=== PATIENT | male | born 1995 | race Caucasian/White ===

== ENCOUNTER 2017-05-28 00:34 | Emergency (ER) | payer BC, OTHER ==
[~2017-05-28] VITALS: Ht 175.3 cm; Wt 114.0 kg
[~2017-05-28 00:34] MED LIST: CEPH500C2 PO; DEXT1CAP8 PO; IBUP-103 PO; SULF800T23 PO
[2017-05-28 00:40] VITALS: TEMP 37; Ht 175.3 cm; Wt 114.0 kg
[2017-05-28] MEDS ORDERED: LIDOCAINE/EPINEPHRINE 1% 20 ML VIAL INFIL ONE (01:00)
--- NOTE | 2017-05-28 01:18 | EMERGENCY ROOM VISIT NOTE ---
History First contact with patient: 00:46 Chief Complaint: HEAD INJURY (MINOR) Stated Complaint: HEAD TRAUMA History of Present Illness The patient is a 21 year old male who presents to the Emergency Room with complaints of a head injury and laceration to his scalp. The patient states that 30 minutes prior to arrival, he slipped and fell backward, striking his head off the corner of a coffee table. There was no loss of consciousness. He reports 2/10 stinging pain at the site of the laceration but denies any other complaints. He denies headache, nausea/vomiting, numbness/weakness, confusion, blurred vision or slurred speech. His tetanus is up-to-date. Review of Systems A complete 10 point review of systems was reviewed with the patient with pertinent positives and negatives as per history of present illness. All else were negative. Past Medical/Surgical History Medical Problems: (1) No significant active problems Family History No pertinent family history Social History Smoking Status: Never Smoker Alcohol Use: occasionally Marital Status: single Housing Status: lives with roommate Occupation Status: [employer] student Current/Historical Medications Scheduled Cephalexin Monohydrate (Keflex), 500 MG PO QID Ibuprofen Tab (Advil), 400 MG PO PRN UD Sulfa/Trimethoprim (Bactrim Ds 800MG/160MG), 1 TAB PO BID Scheduled PRN Dlbrsckejcqteagv-Xndrncmqtm-Wv (Vicks Nyquil Cold & Flu), 2 CAP PO AMPM PRN for SYMPTOMS Physical Exam Vital Signs Date Time Temp Pulse Resp B/P (MAP) Pulse Ox O2 Delivery O2 Flow Rate FiO2 05/28/17 01:28 86 18 117/65 98 05/28/17 00:40 37.0 105 15 149/84 96 Room Air Physical Exam VITALS: Vitals are noted on the nurse's note and reviewed by myself. Vital signs stable. GENERAL: This is a 21-year-old male, in no acute distress, nondiaphoretic, well- developed well-nourished. SKIN: There is a 7 cm linear gaping laceration to the posterior aspect of the scalp without active bleeding. HEAD: Laceration as described above. Otherwise, normocephalic atraumatic. EARS: External auditory canals clear, tympanic membranes pearly gates without erythema or effusion bilaterally. No hemotympanum. EYES: Pupils equal round and reactive to light and accommodation. Extraocular movements intact. MOUTH: Mucous membranes moist. NECK: Supple without nuchal rigidity. Cervical spine is nontender. HEART: Regular rate and rhythm without murmurs gallops or rubs. LUNGS: Clear to auscultation bilaterally without wheezes, rales or rhonchi. NEURO: Patient was alert and oriented to person place and time. Medical Decision & Procedures Procedure Verbal consent was obtained to perform the procedure. Using sterile technique the wound was cleaned with Betadine. The area was sterilely draped. 6 ml of 1 % buffered lidocaine with epinephrine was used to anesthetize the patient's scalp. Once the patient was numb, the wound was copiously irrigated under pressure with sterile saline. The wound was explored and there were no deep structures present. The laceration was repaired using 8 yasmin with the wound edges being well approximated. The patient tolerated the procedure well. The bleeding stopped. The area was cleaned with sterile saline and dressed with bacitracin ointment. Medical Decision Differential diagnosis includes scalp laceration, abrasion, intracranial bleed, concussion, among others. The patient was evaluated as above. He sustained a scalp laceration as described in the physical exam section. Laceration repair was performed as noted in the procedure section. There is no evidence of a more significant head injury. Staple care instructions were discussed with the patient. He verbalized his understanding and was discharged home in good condition. Medication Reconcilliation Current Medication List: was personally reviewed by mo Blood Pressure Screening Patient's blood pressure: Normal blood pressure Impression Primary Impression: Scalp laceration Departure Information Dispostion Home / Self-Care Condition GOOD Referrals No Doctor, Assigned (PCP) Patient Instructions My [facility] Additional Instructions You have received 8 yasmin on your scalp. These yasmin are NOT dissolvable and WILL need to be removed by a health care provider in 10 days. You can return to the Emergency Department or contact your Primary Care Provider to have these yasmin removed. Proper wound care is essential for adequate wound healing and infection prevention. You can shower and clean the wound with soap and water. Do scour over the wound, pat dry with a towel. Do not submerse the wound until the yasmin have been removed. You can use an antibiotic ointment with a dressing over the wound for the next 3-4 days. After this time you may leave the wound dry and open to the air. If crust develops over the wound you can use a Q-tip to apply a 1:1 peroxide:water solution to clean the wound. Look for signs of infection of the wound including: increased pain, swelling, foul discharge, streaking, or increased temperature. If any of these are noticed you should return to the Emergency Department for further assessment and treatment. As with any laceration you may have received nerve damage to the surrounding tissues. This damage may or may not be permanent. For pain control, you can use the following awnw-fka-rnahtfz medicines (if >12 yo): - Regular strength (325mg/tab) Tylenol (acetaminophen) 2 tabs every 4-6 hours as needed. Do not exceed 12 tablets in a 24 hour period. Avoid taking more than 4 grams (4000 mg) of Tylenol per day. This includes any other sources of acetaminophen you may take on a regular basis. - Regular strength (200 mg/tab) Advil (ibuprofen) 1-2 tabs every 4-6 hours as needed. Do not exceed a dose of 3200 mg per day. Return to the emergency department if your symptoms worsen despite treatment course outlined above. Problem Qualifiers Primary Impression: Scalp laceration Encounter type: initial encounter Qualified Codes: S01.01XA - Laceration without foreign body of scalp, initial encounter
[2017-05-28 01:28] VITALS: BP 117/65; PULSE 86; O2SAT 98
== END 2017-05-28 01:25 | disposition home or self-care (01) ==
LOC: C.EDB 00:36
DX: S01.01XA Laceration without foreign body of scalp, initial encounter (principal); W01.118A Fall on same level from slipping, tripping and stumbling with subsequent striking against other sharp object, initial encounter

== ENCOUNTER 2017-06-07 14:56 | Emergency (ER) | payer OTHER ==
[~2017-06-07] VITALS: Ht 175.3 cm; Wt 116.3 kg
[2017-06-07 15:00] VITALS: BP 129/70; PULSE 61; TEMP 36.6; O2SAT 96; Ht 175.3 cm; Wt 116.3 kg
--- NOTE | 2017-06-07 15:15 | EMERGENCY ROOM VISIT NOTE ---
ED Visit Note First contact with patient: 15:04 CHIEF COMPLAINT: Staple removal This patient returns to the ED today for removal of yasmin that were placed 10 days ago on the patient's scalp. There has been no swelling, redness, or drainage from the wound. The patient feels like the laceration is healing well. REVIEW OF SYSTEMS: Head: No headache, injury or neck pain. Skin: No rash, new lesions, or masses. General: No fever or chills, fatigue, loss of appetite , or significant recent weight gain or loss. PMH: The patient is healthy; there is no significant medical or surgical history. SOCIAL HISTORY: Patient is a [employer] student and lives locally with roommates. He admits to occasional alcohol use. PHYSICAL EXAM: Vital Signs: Reviewed Nurse's notes. There is a stapled wound on the scalp with no signs of infection. There is no erythema, swelling, or tenderness. EMERGENCY DEPARTMENT COURSE: 8 yasmin were removed from the scalp without any difficulty and there was no separation of the wound edges. DIAGNOSIS: Healing laceration and staple removal DISCHARGE INSTRUCTIONS AND TREATMENT: Wash any remaining crusts off of the wound today and resume your normal activities. Current/Historical Medications Scheduled Cephalexin Monohydrate (Keflex), 500 MG PO QID Ibuprofen Tab (Advil), 400 MG PO PRN UD Sulfa/Trimethoprim (Bactrim Ds 800MG/160MG), 1 TAB PO BID Scheduled PRN Gtxkwwkyudvhmodq-Sizkkpxgbc-Sa (Vicks Nyquil Cold & Flu), 2 CAP PO AMPM PRN for SYMPTOMS Allergies Coded Allergies: No Known Allergies (Unverified , 02/04/16) Vital Signs Date Time Temp Pulse Resp B/P (MAP) Pulse Ox O2 Delivery O2 Flow Rate FiO2 06/07/17 15:00 36.6 61 16 129/70 96 Room Air Departure Information Impression Primary Impression: Encounter for removal of yasmin Dispostion Home / Self-Care Condition GOOD Referrals [facility] (PCP) Patient Instructions My [facility] Additional Instructions Wash any remaining crusts off of the wound today and resume your normal activities.
== END 2017-06-07 15:21 | disposition home or self-care (01) ==
LOC: C.EDB 14:57 → C.EDD 15:21
DX: Z48.02 Encounter for removal of sutures (principal); S01.01XD Laceration without foreign body of scalp, subsequent encounter; X58.XXXD Exposure to other specified factors, subsequent encounter